=== PATIENT | female | born 1970 | race African-American/Black ===

== ENCOUNTER 2021-06-16 22:46 | Emergency (ER) | payer OTHER, SELFPAY ==
[2021-06-16] VITALS (7 sets, daily range): BP systolic 146–148; BP diastolic 70–95; PULSE 58–76; RESP 14–21; TEMP 36.7; O2SAT 98–100
--- NOTE | ~2021-06-16 | CT_ITS ---
EXAMINATION: CTA chest PE protocol DATE: 06/17/2021 00:19 INDICATION: Chest pain TECHNIQUE: Computed tomography angiography (CTA) of the chest was performed with 100 mL Omnipaque-350 intravenous contrast timed to evaluate the pulmonary arteries. Coronal maximum intensity projection 3D-reconstructions were created by the technologist. The dose-length product (DLP) was 421.22 mGy-cm. Automated exposure control and iterative reconstruction technique were employed. COMPARISON: None. FINDINGS: The pulmonary arteries are well-opacified. No pulmonary embolism is identified. There is mi ld dependent atelectasis. No focal airspace opacities are identified. A calcified nodule of the right lower lobe is consistent with old granulomatous disease. There is no pleural effusion or pneumothora x. No pathologically enlarged thoracic lymph nodes are identified. The heart size is normal. Cysts of the liver measure up to 1.4 cm in the right hepatic lobe. There is moderate thoracic spondylosis. IMPRESSION: 1. No pulmonary embolism or acute cardiopulmonary abnormality. Reviewed, dictated and finalized at location A.
--- NOTE | ~2021-06-16 | XR_ITS ---
EXAMINATION: XR chest 2V DATE: 06/16/2021 23:25 INDICATION: Sternal chest pain TECHNIQUE: PA and lateral views of the chest are obtained. COMPARISON: None available FINDINGS: The lungs are free of acute opacities. There is no pleural effusion or pneumothorax. The ca rdiomediastinal silhouette is normal. There is mild thoracic spondylosis. A calcified nodule of right lower lobe is consistent with old granulomatous disease. IMPRESSION: 1. No acute cardiopulmonary abnormality. Reviewed, dictated and finalized at location A.
--- NOTE | 2021-06-16 22:52 | ECG_ITS ---
Measurements Intervals [place] Rate: 72 P: 42 UT: 175 QRS: -38 QRSD: 88 T: 24 QT: 428 QTc: 469 Interpretive Statements SINUS RHYTHM LEFT AXIS DEVIATION VOLTAGE CRITERIA FOR LVH MINIMAL Q WAVES- HIGH LATERAL LEADS BORDERLINE ECG Electronically Signed On 06-17-2021 8:04:32 CDT by Bob Ruiz D.O.
[2021-06-16] MEDS: ASPIRIN 81 MG CHEWABLE TABLET 324 MG PO (22:58)
--- NOTE | 2021-06-16 23:05 | ED.CHESTPAIN ---
HPI - Chest Pain General Chief Complaint: Chest Pain Stated Complaint: chest pain Time Seen by Provider: 06/16/21 22:50 Source: RN notes reviewed History of Present Illness HPI narrative: Patient presents emergency department from home for left-sided chest pain. Patient symptoms have been present for the past 1 week the pain is located over the left lower chest just to the left of the sternum states is described as aching in nature. She states nothing makes the pain better or worse she denies any fevers or chills, shortness of breath, abdominal pain nausea vomiting diarrhea or any other symptoms. States she has been trying to take gas medication for the pain with no relief Related Data Allergies Allergy/AdvReac Type Severity Reaction Status Date / Time No Known Allergies Allergy Verified 06/16/21 22:54 Review of Systems Review of Systems: Gen.: Denies fevers or chills ENT: Denies congestion Respiratory: Denies shortness of breath or cough CV: See HPI GI: Denies abdominal pain nausea, emesis or diarrhea denies burning, urgency, frequency or hematuria Musculoskeletal: Denies back pain or muscle pain Neuro: Denies numbness, tingling, weakness or focal weakness Skin: Denies rash Except as documented, all other systems reviewed and negative PMFSH Past Medical History Medical History (Updated 06/17/21 @ 02:48 by Ryan Vargas DO) Hypertension Social History Social History (Updated 06/16/21 @ 23:06 by Ryan Vargas DO) Smoking status: Never smoker Exam Narrative: APPEARANCE: No acute distress, nontoxic, resting in bed EYES: EOMI HEENT: Normocephalic, atraumatic, OMM RESPIRATORY: No respiratory distress Clear to auscultation bilaterally with no rhonchi wheezing or rales. CARDIOVASCULAR: Regular rate and rhythm without murmurs rubs or gallops. Chest: Tender palpation over the left anterior chest just left of the sternum and region of ribs 6 through 8 ABDOMINAL: Soft, nontender, nondistended, no rebound or guarding MUSCULOSKELETAl: Moves all extremities. No clubbing, cyanosis or edema. NEURO: Awake and alert. Following commands, speech normal, no focal deficits SKIN:: Warm, dry. No rashes lesions or abrasions PSYCHIATRIC: Normal affect/mood, Course Course Emergency Course: Patient states chest pain is resolved with Discussed with patient results of workup and diagnosis. Discussed need for follow-up with primary care, proper use of medication, and reasons to return to the emergency department. Patient understands and agrees to current treatment plan discussed with patient CT scan showing multiple hypodense lesions in the liver need for outpatient ultrasound Vital Signs Vital signs: Vital Signs Temperature 98.1 F 06/16/21 22:46 Pulse Rate 72 06/16/21 22:46 Respiratory Rate 18 06/16/21 22:46 Blood Pressure 148/95 H 06/16/21 22:46 Pulse Oximetry 100 06/16/21 22:46 Temperature 98.1 F 06/16/21 22:46 Pulse Rate 61 06/17/21 02:00 Respiratory Rate 15 06/17/21 02:00 Blood Pressure 144/74 H 06/17/21 02:00 Pulse Oximetry 99 06/17/21 02:00 MDM - Chest Pain MDM Narrative Medical decision making narrative: Patient's EKGs and labs are without significant high risk changes. Cardiac risk factors reviewed. Patient is felt likely low risk for ACS and reasonable for further risk stratification testing as an outpatient. No pulmonary embolism aortic dissection or pneumonia seen on CTA chest patient is felt to be a reasonable candidate for continued evaluation as an outpatient Lab Data Result diagrams: 06/16/21 23:35 06/16/21 23:35 Labs: Lab Results 06/16/21 06/16/21 06/16/21 Range/Units 23:35 23:35 23:35 WBC 8.2 (4.5-10.0) K/mm3 RBC 4.32 (4.2-5.4) M/mm3 Hgb 11.2 L (12.0-15.0) g/dL Hct 36.1 L (37.0-47.0) % MCV 83.6 (80-100) fl MCH 25.9 L (26-34) pg MCHC 31.0 L (32-36) g/dl RDW 15.3 H (11.5-14.5) % Plt Count
[2021-06-16] MEDS: KETOROLAC 30 MG/ML VIAL (*BKC) IV PUSH (23:37)
[2021-06-16 23:41] LABS: Basophils Absolute Auto 0.1 K/mm3 (0.0-0.1); Basophils Percent Auto 0.9 % (0.2-1.2); Eosinophils Absolute Auto 0.7 K/mm3 (0-0.3); Eosinophils Percent Auto 8.1 % (0-4.4); Hematocrit 36.1 % (37.0-47.0); Hemoglobin 11.2 g/dL (12.0-15.0); Immature Granulocyte Absolute 0.02 K/mm3 (0.00-0.031); Immature Granulocyte Percent A 0.2 % (0-0.5); Lymphocytes Absolute Auto 2.47 K/mm3 (0.9-3.2); Lymphocytes Percent Auto 30.3 % (18.3-44.2); Mean Corpuscular Hemoglobin 25.9 pg (26-34); Mean Corpuscular Volume 83.6 fl (80-100); Mean Platelet Volume 9.8 fl (7.4-10.4); Monocytes Absolute Auto 0.4 K/mm3 (0.1-0.6); Monocytes Percent Auto 4.7 % (2.6-8.5); Neutrophils Absolute Auto 4.6 K/mm3 (1.3-6.7); Neutrophils Percent Auto 55.8 % (45.5-73.1); Platelet Count Result 235 k/mm3 (150-375); Red Blood Count 4.32 M/mm3 (4.2-5.4); Red Cell Distribution Width 15.3 % (11.5-14.5); White Blood Count 8.2 K/mm3 (4.5-10.0)
[2021-06-16 23:53] LABS: Anion Gap 9 mmol/L (8-16); Blood Urea Nitrogen 10 mg/dL (7-17); Calcium 8.8 mg/dL (8.4-10.2); Carbon Dioxide 25 mmol/L (22-30); Chloride 101 mmol/L (98-107); Estimated CRCL calculation 77 ml/min; Estimated Glomerular Filt Rate > 60; Glucose 94 mg/dL (65-110); Potassium 3.5 mmol/L (3.4-5.0); Sodium 135 mmol/L (137-145)
[2021-06-16 23:54] LABS: INR 0.9; Prothrombin Time 12.5 Seconds (11.1-14.7)
[2021-06-16 23:55] LABS: Partial Thromboplastin Time 29.5 SECONDS (22.3-36.8)
[2021-06-16 23:57] LABS: D Dimer 3.92 ug/mL (<0.48)
[2021-06-17] VITALS (10 sets, daily range): BP systolic 140–144; BP diastolic 72–74; PULSE 56–74; RESP 15–18; O2SAT 92–100
[2021-06-17 00:05] LABS: Troponin I < 0.012 ng/mL (0.000-0.034)
[2021-06-17 02:42] LABS: Troponin I < 0.012 ng/mL (0.000-0.034)
== END 2021-06-17 02:57 | disposition home or self-care (01) ==
PROVIDERS: Emergency Provider Emergency Medicine
DX: R07.89 Other chest pain (principal); R94.31 Abnormal electrocardiogram [ECG] [EKG]
CPT/HCPCS: 36415; 71046; 71275; 80048; 84484; 85025; 85380; 85610; 85730; 93005; 96374; 99284; A9270; J1885; Q9967

== ENCOUNTER 2023-01-30 17:43 | Emergency (ER) | payer OTHER, SELFPAY ==
--- NOTE | ~2023-01-30 | CT_ITS ---
EXAMINATION: CTA chest PE protocol DATE: 01/30/2023 20:11 INDICATION: Shortness of breath TECHNIQUE: Computed tomography angiography (CTA) of the chest was performed with 100 mL Omnipaque-350 intravenous contrast timed to evaluate the pulmonary arteries. Coronal maximum intensity projection 3D-reconstructions were created by the technologist. The dose-length product (DLP) was 490.24 mGy-cm. Automated exposure control and iterative reconstruction technique were employed. COMPARISON: None. FINDINGS: The pulmonary arteries are well-opacified. No pulmonary embolism is identified. There are m inimal airspace opacities of the right lower lobe. No pleural effusion or pneumothorax. Calcified pul monary nodules are consistent with old granulomatous disease. No pathologically enlarged thoracic lym ph nodes are identified. The heart size is normal. Cysts of the partially imaged liver measure up to 12 mm. There is moderate thoracic spondylosis. IMPRESSION: 1. No pulmonary embolus. 2. Right lower lobe airspace opacity, consistent with pneumonia. Reviewed, dictated and finalized at location F.
--- NOTE | ~2023-01-30 | XR_ITS ---
EXAMINATION: XR chest 1V portable INDICATION: Productive cough and chest tightness TECHNIQUE: Portable AP chest at 1834 hours COMPARISON: 06/16/2021 FINDINGS: There are patchy airspace opacities of the right lung base. No pleural effusion or pneumoth orax. The cardiomediastinal silhouette is normal. IMPRESSION: 1. Right basilar airspace opacity, consistent with atelectasis versus pneumonia. Reviewed, dictated and finalized at location F. IMPRESSION: 1. Right basilar airspace opacity, consistent with atelectasis versus pneumonia .
[2023-01-30 17:49] VITALS: BP 147/90; PULSE 90; RESP 16; TEMP 36.6; O2SAT 100
--- NOTE | 2023-01-30 18:19 | ECG_ITS ---
Measurements Intervals [place] Rate: 78 P: 54 [place]: 189 QRS: -39 QRSD: 89 T: 45 QT: 394 QTc: 451 Interpretive Statements SINUS RHYTHM MARKED LEFT AXIS DEVIATION [QRS AXIS < -30] MODERATE VOLTAGE CRITERIA FOR LVH, CONSIDER NORMAL VARIANT [MEETS CRITERIA IN ONE OF: R(aVL), S(V1), R(V5), R(V5/V6)+S(V1)] COMPARED TO ECG 06/16/2021 23:01:48 NO SIGNIFICANT CHANGES Electronically Signed On 01-31-2023 22:10:32 CDT by Ally Sanchez M.D.
--- NOTE | 2023-01-30 18:21 | ED.GENADULT ---
HPI - General Adult General Chief complaint: Upper Respiratory Infection Stated complaint: sob, coughing Time Seen by Provider: 01/30/23 17:55 Source: patient Mode of arrival: ambulatory Limitations: no limitations History of Present Illness HPI narrative: This is a 52-year-old female with PMH of hypertension, PE, asthma who presents to the ED with chief complaint of URI symptoms x2 weeks. Reports malaise, cough, congestion, rhinorrhea. Reports productive cough with clear to white sputum. States she feels like the chest is tight. There is pain with coughing specifically. When asked about shortness of breath, she states that she is not short of breath but just feels tight and congested. Denies fevers, abdominal pain, nausea, vomiting. She has been trying Mucinex at home with minimal relief. Reports that she has a primary care appointment next week. Related Data Allergies Allergy/AdvReac Type Severity Reaction Status Date / Time No Known Allergies Allergy Verified 06/16/21 22:54 Review of Systems Review of Systems: CONSTITUTIONAL: Denies fever, chills, or sweats. EYES: Denies visual changes, redness, or discharge. ENT: See HPI CARDIOVASCULAR: Endorses chest tightness. Denies palpitations, or edema. RESPIRATORY: See HPI GASTROINTESTINAL: Denies abdominal pain, nausea, vomiting, or diarrhea. GENITOURINARY: Denies dysuria or hematuria. SKIN: Denies rash or itching. MUSCULOSKELETAL: Denies back pain, joint pain, or myalgia. NEUROLOGIC: Denies headache, numbness, dizziness, or weakness. PSYCHIATRIC: Denies anxiety or depression. PMFSH Past Medical History Medical History (Updated 01/30/23 @ 21:10 by Art Lassiter PA-C) Hypertension Social History Social History (Updated 06/16/21 @ 23:06 by Ryan Vargas DO) Smoking status: Never smoker Exam Narrative: GENERAL: Well-appearing, well-nourished, and in no acute distress. HEAD: Normocephalic, atraumatic. EYES: PERRLA and EOMI. ENT: Nares clear, no rhinorrhea or epistaxis. Mucous membranes moist. Oropharynx without tonsillar hypertrophy exudate or other lesions. Posterior oropharynx erythema present. NECK: Supple. No adenopathy or masses. CHEST: No respiratory distress. Clear to auscultation. Scattered faint wheezes in the bilateral bases. No obvious rales or rhonchi HEART: Regular rate and rhythm. No murmur heard. Normal peripheral pulses. ABDOMEN: Soft, nontender, nondistended, normal active bowel sounds. EXTREMITIES: Normal range of motion. No edema. SKIN: Warm, dry, no rash. NEURO: Alert and oriented x3. No focal deficits. PSYCH: Normal mood and affect. Course Course Emergency Course: Reeval 1924: Wheezing improved after nebulizer. She feels much improved. Vital Signs Vital signs: Vital Signs Temperature 97.9 F 01/30/23 17:49 Pulse Rate 90 01/30/23 17:49 Respiratory Rate 16 01/30/23 17:49 Blood Pressure 147/90 H 01/30/23 17:49 Pulse Oximetry 100 01/30/23 17:49 Oxygen Delivery Room Air 01/30/23 17:49 Temperature 97.9 F 01/30/23 17:49 Pulse Rate 76 01/30/23 21:17 Respiratory Rate 16 01/30/23 21:17 Blood Pressure 159/100 H 01/30/23 21:17 Pulse Oximetry 95 01/30/23 21:17 Oxygen Delivery Room Air 01/30/23 17:49 Medical Decision Making MDM Narrative Medical decision making narrative: This is a 52-year-old female presents the ED with chief complaints of URI symptoms with productive cough and shortness of breath x2 weeks. Vitals are stable. Afebrile here and at home. Exam reveals bilateral wheezes. These wheezes improved with nebulizer here in the department. Labs show normal white count. She did have an elevated D-dimer. This was ordered with her shortness of breath and history of PE in the past. CTA is negative for PE but does show continued evidence of pneumonia in the right lower lobe. Otherwise normal lab work-up. Viral swabs are negative. Chest x-ray shows right lower lobe opacity consis
[2023-01-30 18:39] VITALS: PULSE 83; RESP 17
[2023-01-30] MEDS: LEVALBUTEROL NEB 1.25 MG/3 ML INHALATION (18:39)
[2023-01-30 18:45] VITALS: PULSE 78; RESP 17
[2023-01-30 18:49] LABS: Basophils Percent Auto 0.4 % (0.2-1.2); Eosinophils Absolute Auto 0.3 K/mm3 (0-0.3); Eosinophils Percent Auto 4.2 % (0-4.4); Hematocrit 38.6 % (37.0-47.0); Hemoglobin 11.9 g/dL (12.0-15.0); Immature Granulocyte Absolute 0.02 K/mm3 (0.00-0.031); Immature Granulocyte Percent A 0.3 % (0-0.5); Lymphocytes Absolute Auto 1.89 K/mm3 (0.9-3.2); Lymphocytes Percent Auto 27.3 % (18.3-44.2); Mean Corpuscular HGB Conc 30.8 g/dl (32-36); Mean Corpuscular Hemoglobin 25.8 pg (26-34); Mean Corpuscular Volume 83.7 fl (80-100); Mean Platelet Volume 10.4 fl (7.4-10.4); Monocytes Absolute Auto 0.4 K/mm3 (0.1-0.6); Monocytes Percent Auto 5.3 % (2.6-8.5); Neutrophils Absolute Auto 4.3 K/mm3 (1.3-6.7); Neutrophils Percent Auto 62.5 % (45.5-73.1); Platelet Count Result 270 k/mm3 (150-375); Red Blood Count 4.61 M/mm3 (4.2-5.4); Red Cell Distribution Width 15.4 % (11.5-14.5); White Blood Count 6.9 K/mm3 (4.5-10.0)
[2023-01-30 19:01] LABS: Anion Gap 8 mmol/L (8-16); Blood Urea Nitrogen 12 mg/dL (7-17); Calcium 8.8 mg/dL (8.4-10.2); Carbon Dioxide 27 mmol/L (22-30); Chloride 109 mmol/L (98-107); Estimated CRCL calculation 85 ml/min; Estimated Glomerular Filt Rate > 60; Glucose 112 mg/dL (65-110); Potassium 3.6 mmol/L (3.4-5.0); Sodium 144 mmol/L (137-145)
[2023-01-30 19:13] LABS: Troponin I < 0.012 ng/mL (0.000-0.034)
[2023-01-30 19:51] LABS: Influenza A QL RT-PCR Negative (Negative); Influenza B QL RT-PCR Negative (Negative); RSV RNA, RT-PCR Negative (Negative); SARS-CoV-2 RNA PCR Negative
[2023-01-30] MEDS: DOXYCYCLINE HYCLATE 100 MG TABLET PO (21:16)
[2023-01-30 21:17] VITALS: BP 159/100; PULSE 76; RESP 16; O2SAT 95
== END 2023-01-30 21:21 | disposition home or self-care (01) ==
PROVIDERS: Emergency Provider Physician Assistant
DX: J18.9 Pneumonia, unspecified organism (principal); I10 Essential (primary) hypertension; J45.909 Unspecified asthma, uncomplicated; Z86.711 Personal history of pulmonary embolism
CPT/HCPCS: 36415; 71045; 71275; 80048; 84484; 85025; 85380; 87637; 93005; 94640; 99284; A9270; Q9967